=== PATIENT | male | born 1995 | race Caucasian/White ===

== ENCOUNTER 2020-10-25 20:38 | Emergency (ER) | payer SELFPAY ==
[~2020-10-25] VITALS: Ht 185.4 cm; Wt 113.4 kg
[2020-10-25] MEDS ORDERED: LIDOCAINE 1% 5ML-MPF INJ STA (20:52)
[2020-10-25] MEDS ORDERED: CEPHALEXIN500 MG PO (21:16)
== END 2020-10-25 21:35 | disposition home or self-care (01) ==
LOC: FSED 20:54
DX: S31.21XA Laceration without foreign body of penis, initial encounter (principal); X58.XXXA Exposure to other specified factors, initial encounter; Y92.003 Bedroom of unspecified non-institutional (private) residence as the place of occurrence of the external cause
CPT/HCPCS: 99283

== ENCOUNTER 2020-12-14 21:30 | Emergency (ER) | payer OTHER ==
[~2020-12-14] VITALS: Ht 185.4 cm; Wt 114.8 kg
[~2020-12-14 21:30] MED LIST: CEPHALEXIN500 MG PO
[2020-12-14] MEDS ORDERED: AMOXICILLIN/CLAVULANATE K 875 MG TAB PO STA (22:34)
[2020-12-14] MEDS ORDERED: CEPHALEXIN500 MG PO (22:52)
[2020-12-14 23:00] VITALS: BP 158/88
== END 2020-12-14 23:00 | disposition home or self-care (01) ==
LOC: FSED 21:50
DX: N99.89 Other postprocedural complications and disorders of genitourinary system (principal); N48.29 Other inflammatory disorders of penis
CPT/HCPCS: 99283